=== PATIENT | male | born 2000 | race Caucasian/White ===

== ENCOUNTER 2023-09-26 13:47 | Emergency (ER) | payer OTHER ==
[~2023-09-26] VITALS: Ht 170.2 cm; Wt 77.1 kg
[2023-09-26 13:56] VITALS: BP_SYST 113; PULSE 58; RESP 20; TEMP 98.3; O2SAT 99
[2023-09-26] MEDS ORDERED: IBUPROFEN 600 MG TABLET PO ONE (15:00)
[2023-09-26] MEDS ORDERED: CEPH250C PO (16:55)
[2023-09-26 17:32] VITALS: BP_SYST 113; PULSE 58; RESP 20; TEMP 98.3; O2SAT 99
== END 2023-09-26 17:32 | disposition home or self-care (01) ==
LOC: SED 13:47
DX: L03.114 Cellulitis of left upper limb (principal); R59.9 Enlarged lymph nodes, unspecified; Z79.899 Other long term (current) drug therapy
CPT/HCPCS: 73060-TC; 99284